=== PATIENT | female | born 1970 | race Caucasian/White ===

== ENCOUNTER → 2016-09-21 | Outpatient (CLI) | payer BC | LOC: RAD 15:01 | PROVIDERS: ATTEND Family Medicine | DX: R06.02 Shortness of breath (principal) | CPT/HCPCS: 71020 ==

== ENCOUNTER → 2016-10-23 | Outpatient (REF) | payer BC ==
[~2016-10-23] MED LIST: BUPR300T43 PO; CHOL200014 PO; DEXL60CA5 PO; DRON2.5C10 PO; ESTR0.5T PO; ESTR2TAB PO; FOSI10TA3 PO; FSNP20T GT; HYDR-3702 PO; VALA500T4 PO; VITA100035 PO
[2016-10-23 11:17] LABS: BILIRUBIN,URINE Negative (Negative); CLARITY,URINE Clear; COLOR,URINE Yellow; GLUCOSE, URINE (UA) Negative (Negative); LEUKOCYTE ESTERASE ,URINE Negative (Negative); UROBILINOGEN,URINE 0.2 mg/dL (0.2-1.0)
== END ==
LOC: LAB 10:52
PROVIDERS: ATTEND Physician Assistant Surgical
DX: M54.5 Low back pain (principal)
CPT/HCPCS: 81003

== ENCOUNTER → 2016-11-01 | Outpatient (CLI) | payer BC ==
--- NOTE | 2016-11-01 10:49 | Diagnostic Imaging Report ---
PROCEDURE: CT abdomen and pelvis with and without contrast. TECHNIQUE: Precontrast acquisitions were acquired through the abdomen and pelvis. Multiple contiguous axial images were obtained through the abdomen and pelvis after the administration of intravenous contrast. INDICATION: Followup rectal CA. History of previous rectal cancer 6 years ago. No previous studies are currently available for comparison. FINDINGS: The lung bases are clear. Liver appears normal. Gallbladder is absent. Bile ducts are not dilated. The pancreas is normal. There are 2 hypodense areas within the spleen which do not enhance. Inferiorly and medially the well-circumscribed density measures 8 mm and appears to represent a simple cyst. Additional hypodense lesion midportion of the spleen posteriorly measures 6 mm. This could represent a cyst as well though is less defined. The adrenal glands appear normal. The kidneys appear normal. There is normal enhancement of the kidneys following IV contrast. Aorta shows normal enhancement of the abdominal vessels. There is minimal atherosclerotic disease of the aorta. No retroperitoneal adenopathy of pathologic size. The stomach and small bowel appear normal. The colon shows normal stool and gas pattern. There are a few diverticula along the descending and sigmoid colon with no findings to indicate diverticulitis. The rectum does not appear to be thickened. The mesial rectal fat appears normal with no enlarged lymph nodes in the perirectal fat. No iliac chain adenopathy. Bone windows appear normal. Reconstructed images of the lumbar spine show good alignment. Mild degenerative disc disease noted. No evidence of pars defect. IMPRESSION: 1. Hypodense lesions in the spleen likely representing cysts. Comparison with previous CT scan would be helpful. 2. No other findings are seen to suggest metastatic disease. 3. The rectum and mesial rectal fat appears normal with no pelvic adenopathy. Dictated by: Dictated on workstation # [id number]
== END ==
LOC: RAD 08:56
PROVIDERS: ATTEND Physician Assistant Surgical
DX: M54.5 Low back pain (principal); Z85.048 Personal history of other malignant neoplasm of rectum, rectosigmoid junction, and anus
CPT/HCPCS: 74178; Q9967